=== PATIENT | female | born 1985 | race Caucasian/White ===

== ENCOUNTER 2016-08-27 20:35 | Outpatient (CLI) | payer OTHER, MEDICAID | END 2016-08-27 22:40 | disposition home or self-care (01) | LOC: 2LDRP 20:35 → BC 20:35 | DX: O47.1 False labor at or after 37 completed weeks of gestation (principal); Z3A.37 37 weeks gestation of pregnancy ==

== ENCOUNTER 2016-08-28 03:25 | Inpatient (IN) | payer OTHER, MEDICAID ==
[~2016-08-28] VITALS: Ht 165.1 cm; Wt 63.5 kg
--- NOTE | ~2016-08-28 | OR ---
ADMIT: 08/28/2016 RM/LOC: 222 [facility] MR#: [id number] [address] EMEKA BOYCE [address] [place] [address] Operative/Delivery Room Report SEX: F AGE: 31 : 1985 SURGERY DATE: 08/28/2016 SURGEON: Hal Folres MD PRINCIPAL DIAGNOSES: 1. Term intrauterine at 37 weeks' estimated gestational age. 2. Spontaneous labor. POSTOPERATIVE DIAGNOSES: 1. Term intrauterine at 37 weeks' estimated gestational age. 2. Spontaneous labor. PROCEDURE: Spontaneous vaginal delivery. INDICATION: The patient is a 31-year-old white female, 5, para 3-0-1- 3, who presented at 37 weeks estimated gestational age with complaint of uterine contractions, progressed through labor in a satisfactory fashion to complete. ANESTHESIA: Epidural. ESTIMATED BLOOD LOSS: 250 mL. COMPLICATIONS: None. FINDINGS: Viable female , 6 pounds 4.5 ounces with scores of 9 at 1 and 10 at 5 minutes, delivered in right occiput anterior presentation. DESCRIPTION OF PROCEDURE: When the patient was noted to be complete and pushing, she was prepped and draped in the usual fashion in dorsal lithotomy position. 's head was allowed to deliver over an intact perineum. ADMIT: 08/28/2016 RM/LOC: 222 [facility] MR#: [id number] [place], [place] [id number] EMEKA BARBOSA [address] [place] [address] Operative/Delivery Room Report SEX: F AGE: 31 : 1985 After restitution of the head, the neck was examined for nuchal cord and none was noted. The anterior followed by the posterior shoulders were delivered, followed by expulsion of the remainder of the . Cord was clamped x2, cut, and the infant was placed on the maternal stomach in the care of nursing staff. Placenta was then delivered intact with normal appearance. Uterine cervix was visualized and noted to be without lacerations or tears. Attention was then turned to the perineum where she was noted to have a small second- degree midline laceration, this was reapproximated with a single figure-of- eight stitch to close the vaginal mucosa, and a single subcuticular stitch of 2-0 Vicryl to close the perineal skin. The patient tolerated the procedure well and was taken to the recovery room in stable condition. All sponge, instrument, and needle counts were correct. Hal Flores MD/ puja JOB #: [id number] CC: Hal Flores, Attending Physician Hal Flores, Family Physician
--- NOTE | ~2016-08-28 | FD ---
ADMIT: 08/28/2016 RM/LOC: 222 [facility] MR#: [id number] [address] EMEKA BAR[place] [address] Final Diagnosis SEX: F AGE: 31 : 1985 ADMISSION DATE: 08/28/2016 DISCHARGE DATE: 08/29/2016 FINAL DIAGNOSIS: 1. Intrauterine at 37 weeks. 2. Spontaneous labor. PROCEDURE: Vaginal delivery. Hal Flores MD/ saurabh JOB #: [id number] CC: Hal Flores MD, Attending Physician Hal Flores MD, Family Physician
[2016-08-29] MEDS ORDERED: MOTRIN-DPS800 MG PO (19:13)
[2016-08-29] MEDS ORDERED: PRENATAL VIT1 TAB PO (19:13)
[2016-08-29] MEDS ORDERED: TYLENOL #3 DPS1 TAB PO (19:14)
--- NOTE | 2016-10-02 09:29 | OR ---
ADMIT: 08/28/2016 RM/LOC: 222 [facility] MR#: [id number] [id number] [id number] GERA [place] [address] Operative/Delivery Room Report SEX: F AGE: 31 : 1985 SURGERY DATE: 08/28/2016 SURGEON: Hal Flores MD PRINCIPAL DIAGNOSES: 1. Term intrauterine , . 2. Epidural placement for pain control. POSTOPERATIVE DIAGNOSES: 1. Term intrauterine , . 2. Epidural placement for pain control. PROCEDURE: Removal of previously placed epidural catheter. INDICATION: The patient is a 31-year-old white female, 5, para 3-0-1- 3, who presented at 37 weeks estimated gestational age in active labor, underwent an uncomplicated labor and subsequent spontaneous vaginal delivery. DESCRIPTION OF PROCEDURE: The patient was placed in Flores's position. Stabilizing tapes were removed, and epidural catheter was removed with tip intact. Epidural site was dressed with a Band-Aid. The patient tolerated the procedure well. Hal Flores MD/ puja JOB #: [id number] CC: Hal Flores, Attending Physician Hal Flores, Family Physician
== END 2016-08-29 14:20 | disposition home or self-care (01) | DRG 775 ==
LOC: 2LDRP 03:25 → BC 03:25 → 2LDRP 03:40
PROVIDERS: ADMIT Obstetrics & Gynecology
PROC: 10E0XZZ Delivery of Products of Conception, External Approach (ICD-10-PCS; principal; 2016-08-28)
PROC: 0KQM0ZZ Repair Perineum Muscle, Open Approach (ICD-10-PCS; principal; 2016-08-28)
DX: O70.1 Second degree perineal laceration during delivery (principal); Z37.0 Single live birth; Z3A.37 37 weeks gestation of pregnancy